=== PATIENT | male | born 1960 | race Caucasian/White ===

== ENCOUNTER 2016-10-12 08:43 | Day surgery (SDC) | payer OTHER ==
[~2016-10-12] VITALS: Ht 172.7 cm; Wt 64.3 kg
[2016-10-12] VITALS (8 sets, daily range): BP systolic 152–215; BP diastolic 76–99; PULSE 70–74; RESP 11–18; Ht 172.7 cm; Wt 64.3 kg
[~2016-10-12 08:43] MED LIST: BLOOD PRESSURE MEDS; INSULIN; NAPR-688 PO; OMEP20CA16 PO
[2016-10-12] MEDS ORDERED: MIDAZOLAM 1 MG/ML 2 ML INJ ONE (08:58)
[2016-10-12] MEDS ORDERED: PROPOFOL 0 ML ONE (08:58)
[2016-10-12] MEDS ORDERED: CEFAZOLIN 1 GM INJ ONE (08:58)
[2016-10-12] MEDS ORDERED: LIDOCAINE 1% (MDV) 20 ML INJ ONE (08:58)
[2016-10-12] MEDS ORDERED: HYDROmorphONE (0.2 MG/ML) 10ML SYG IV PRN (09:00)
[2016-10-12] MEDS ORDERED: LABETALOL HCL 20MG INJ IV PRN (09:00)
[2016-10-12] MEDS ORDERED: PROCHLORPERAZINE 10 MG INJ IV PRN (09:00)
[2016-10-12] MEDS ORDERED: INSULIN ASPART [NOVOLOG] 3 ML PEN SC ONE (09:00)
[2016-10-12] MEDS ORDERED: FENTAnyl 50 MCG/ML VIAL IV PRN (09:00)
[2016-10-12] MEDS ORDERED: OXYCODONE/ACETAMINOPHEN (5/325) TAB PO PRN ×2 (09:00)
[2016-10-12] MEDS ORDERED: hydrALAzine 20 MG INJ IV PRN (09:00)
[2016-10-12] MEDS ORDERED: MEPERIDINE 25 MG INJ IV PRN (09:00)
[2016-10-12] MEDS ORDERED: ONDANSETRON 4 MG INJ IV PRN (09:00)
[2016-10-12] MEDS ORDERED: DIPHENHYDRAMINE 50 MG INJ IV PRN (09:00)
[2016-10-12] MEDS ORDERED: EPHEDrine SULFATE 50 MG/5 ML SYG IV PRN (09:00)
[2016-10-12] MEDS ORDERED: PROPOFOL 100 ML ONE (09:01)
[2016-10-12] MEDS ORDERED: ROPIVACAINE 0.5 % 30 ML VIAL ONE (09:04)
[2016-10-12] MEDS ORDERED: AMLO-147 PO (09:21)
[2016-10-12] MEDS ORDERED: NOVO3I SC (09:21)
[2016-10-12] MEDS ORDERED: ATOR40TA68 PO (09:22)
[2016-10-12] MEDS ORDERED: CALC667C PO (09:23)
[2016-10-12] MEDS ORDERED: CARV25TA79 PO (09:23)
[2016-10-12 09:37] LABS: ADD SCAN DIFF NO
--- NOTE | 2016-10-12 09:44 | HPN ---
Date/Time of Note Date/Time of Note DATE: 10/12/16 TIME: 09:43 Interval H&P Admission Note Pt. seen H&P reviewed: No system changes ELSIE COHEN MD October 12, 2016 09:43
[2016-10-12 09:48] LABS: BASOPHILS % 0.3 % (0.0-2.0); EOSINOPHILS # 0.4 10^3/ul (0.0-0.5); EOSINOPHILS % 4.7 % (0.0-7.0); HEMATOCRIT 29.8 % (42.0-52.0); HEMOGLOBIN 9.9 g/dl (14.0-18.0); LYMPHOCYTES % 11.1 % (15.0-51.0); MEAN CORPUSCULAR HEMOGLOBIN 29.7 pg (29.0-33.0); MEAN CORPUSCULAR HGB CONC 33.2 g/dl (32.0-37.0); MEAN CORPUSCULAR VOLUME 89.5 fl (82.0-101.0); MEAN PLATELET VOLUME 11.8 fl (7.4-10.4); MONOCYTE # 0.8 10^3/ul (0.3-0.9); MONOCYTES % 8.8 % (0.0-11.0); NEUTROPHILS % 74.8 % (39.0-77.0); PLATELET COUNT 203 10^3/UL (140-415); RED BLOOD COUNT 3.33 10^6/ul (4.70-6.10); RED CELL DISTRIBUTION WIDTH 14.5 % (11.5-14.5); WHITE BLOOD COUNT 9.3 10^3/ul (4.8-10.8)
[2016-10-12] MEDS ORDERED: GELATIN SIZE 100 SPONGE ONE (09:50)
[2016-10-12] MEDS ORDERED: THROMBIN 5000 UNIT VIAL ONE (09:50)
[2016-10-12] MEDS ORDERED: HEPARIN 1000 UNITS/ML 10 ML INJ ONE (09:50)
[2016-10-12] MEDS ORDERED: LIDOCAINE 1% (MPF) 30 ML INJ ONE (09:50)
--- NOTE | 2016-10-12 09:55 | RADRPT ---
PROCEDURE: XR Chest. CLINICAL INDICATION: AV FISTULA CREATION , preoperative examination TECHNIQUE: Single frontal view of the chest was obtained. COMPARISON: None available FINDINGS: The cardiomediastinal silhouette is borderline prominent. Vasculature is prominent and slightly ind istinct. There is a right internal jugular catheter extending slightly past the cavoatrial junction region.. . No signs of pleural fluid or pneumothorax are seen. The osseous structures and soft tissues are unre markable. IMPRESSION: 1. Borderline cardiomegaly. Minimal pulmonary edema. 2. Right internal jugular catheter extending slightly past the cavoatrial junction region. RPTAT: DD .Gilberto Duncan MD, MD Date Time Electronically viewed and signed by .Gilberto Duncan MD, on 10/12/2016 09:55 .T/
[2016-10-12 09:56] LABS: ALBUMIN 3.5 g/dl (3.3-4.9)
[2016-10-12 09:59] LABS: BILIRUBIN,INDIRECT 0.2 mg/dl (0-1.1); BILIRUBIN,TOTAL 0.2 mg/dl (0.2-1.3)
[2016-10-12 10:00] LABS: ALBUMIN/GLOBULIN RATIO 0.89; TOTAL PROTEIN 7.4 g/dl (6.1-8.1)
[2016-10-12] MEDS ORDERED: HEPARIN 1000 UNITS/ML 10 ML INJ IRR ONE (10:00)
[2016-10-12] MEDS ORDERED: LIDOCAINE 1% (MPF) 30 ML INJ INJ ONE (10:00)
[2016-10-12 10:01] LABS: INR 1.05; PROTIME 13.7 Sec (12.2-14.2); PT RATIO 1.1
[2016-10-12 10:02] LABS: PARTIAL THROMBOPLASTIN TIME 27.3 Sec (25.0-35.0)
[2016-10-12 10:17] LABS: CALCIUM 8.4 mg/dl (8.4-10.2); CREATININE 3.7 mg/dl (0.61-1.24)
[2016-10-12 10:19] LABS: POTASSIUM 5.3 mmol/L (3.5-5.1)
[2016-10-12] MEDS ORDERED: METOCLOPRAMIDE 10 MG INJ ONE (10:37)
[2016-10-12] MEDS ORDERED: ONDANSETRON 4 MG INJ ONE (10:37)
[2016-10-12] MEDS ORDERED: FENTAnyl 50 MCG/ML VIAL ONE (10:46)
[2016-10-12] MEDS ORDERED: METOPROLOL 5 MG INJ ONE (10:48)
[2016-10-12] MEDS ORDERED: hydrALAzine 20 MG INJ ONE (10:48)
[2016-10-12] MEDS ORDERED: LABETALOL HCL 20MG INJ ONE ×3 (10:48→11:18)
--- NOTE | 2016-10-12 11:31 | RADRPT ---
Vent Rate: 77 bpm RR Interval: 0 msec NM Interval: 172 msec QRS Duration: 84 msec QT Interval: 382 msec QTC Interval: 432 msec P-R-T Lando: 56 - 74 - 87 degrees Normal sinus rhythm Nonspecific ST and T wave abnormality Abnormal ECG Electronically Signed By: Lew Mann [id number]
--- NOTE | 2016-10-12 12:14 | OPR ---
DATE OF OPERATION: 10/12/2016 PREOPERATIVE DIAGNOSIS: End-stage renal disease. POSTOPERATIVE DIAGNOSIS: End-stage renal disease. PROCEDURE PERFORMED: Creation of left arm AV fistula. SURGEON: Elsie Lr MD ANESTHESIA: Supraclavicular block anesthesia. ESTIMATED BLOOD LOSS: Minimal. COMPLICATIONS: No intraprocedural complications. INDICATIONS: This is a 56-year-old gentleman with end-stage renal disease on dialysis via a right I J PermCath. He needs long-term AV access for continued dialysis. A vein map of the left arm, he acevedo s a very good cephalic vein from the wrist all the way up to the shoulder, so we made a snuffbox AV fistula. DESCRIPTION OF PROCEDURE: The patient was brought to the operating room and placed on the table in supine position. Left arm was prepped and draped in the usual sterile fashion. I used ultrasound t o identify the left cephalic vein and traced it all the way up to the shoulder. It was a good calib er vein along its entire length. It was actually a nice sized vein that goes right down over the an atomic snuffbox. There is a good radial artery branch, a snuffbox branch to the radial artery with an anatomic snuffbox, so that is what I used. block was in place. Then, I prepped and draped the left arm in the usual sterile fashion. I began by making an incision made over the anatomic snuffbox of the left hand. I carefully dissected out the cephalic vein branch right through the anatomic snuff box. I then ligated it distally and divided it. I flushed it and it was a good caliber vein, it was a good 3 mm. I then dissected out the snuffbox branch of the radial artery just below the vein. It was a good artery, nice pulse, go od caliber, it was 2 to 3 mm. I clamped it proximally and distally, made an 8 mm long anterior sea riotomy, spatulated the end of the vein and anastomosed the end of the vein to the side of the arter y using 6-0 Prolene suture in the usual sterile fashion. I then removed the clamps. There was a go od thrill, good hemostasis. The skin incision was closed using 3-0 Vicryl subcuticular suture and 4 -0 Monocryl subcuticular suture for the skin. Sterile dressing was applied. The patient was then t ransferred to the recovery room in stable condition. He tolerated the procedure well. Dictated By: ELSIE DELUCA/BALA Conf#: [id number] DID#: [id number]
== END 2016-10-12 13:45 | disposition home or self-care (01) ==
LOC: SDS 08:43
PROVIDERS: ATTEND Surgery Vascular Surgery
DX: I12.0 Hypertensive chronic kidney disease with stage 5 chronic kidney disease or end stage renal disease (principal); N18.6 End stage renal disease; E11.9 Type 2 diabetes mellitus without complications
CPT/HCPCS: 36821; 71010; 80053; 82962; 85025; 85610; 85730; 93005; C1725; J0360; J0690; J1644; J2250; J2405; J2765; J2795; J3010; J1815

== ENCOUNTER 2017-02-15 09:56 | Day surgery (SDC) | payer OTHER ==
[~2017-02-15] VITALS: Ht 172.7 cm; Wt 63.9 kg
[~2017-02-15 09:56] MED LIST changes: +AMLO-147 PO; +ATOR40TA68 PO; -BLOOD PRESSURE MEDS; +CALC667C PO; +CARV25TA79 PO; -INSULIN; -NAPR-688 PO; +NOVO3I SC; -OMEP20CA16 PO
[2017-02-15] MEDS ORDERED: NOV SC* (10:30)
[2017-02-15 10:54] VITALS: Ht 172.7 cm; Wt 63.9 kg
[2017-02-15 10:58] VITALS: BP 214/90; PULSE 77; RESP 16
[2017-02-15 11:47] LABS: BASOPHILS % 0.5 % (0.0-2.0); EOSINOPHILS # 0.5 10^3/ul (0.0-0.5); EOSINOPHILS % 6.1 % (0.0-7.0); HEMATOCRIT 34.1 % (42.0-52.0); HEMOGLOBIN 11.2 g/dl (14.0-18.0); INR 0.99; MEAN CORPUSCULAR HEMOGLOBIN 29.9 pg (29.0-33.0); MEAN CORPUSCULAR HGB CONC 32.8 g/dl (32.0-37.0); MEAN CORPUSCULAR VOLUME 91.2 fl (82.0-101.0); MEAN PLATELET VOLUME 12.5 fl (7.4-10.4); MONOCYTE # 0.5 10^3/ul (0.3-0.9); MONOCYTES % 6.8 % (0.0-11.0); NEUTROPHIL # 5.8 10^3/ul (1.6-7.5); NEUTROPHILS % 73.2 % (39.0-77.0); PLATELET COUNT 140 10^3/UL (140-415); PROTIME 13.1 Sec (12.2-14.2); RED BLOOD COUNT 3.74 10^6/ul (4.70-6.10); RED CELL DISTRIBUTION WIDTH 12.3 % (11.5-14.5); WHITE BLOOD COUNT 7.9 10^3/ul (4.8-10.8)
[2017-02-15 11:48] LABS: PARTIAL THROMBOPLASTIN TIME 28.4 Sec (25.0-35.0)
[2017-02-15 11:56] LABS: ALBUMIN 4.4 g/dl (3.3-4.9); ALBUMIN/GLOBULIN RATIO 1.18; BILIRUBIN,INDIRECT 0.1 mg/dl (0-1.1); BILIRUBIN,TOTAL 0.1 mg/dl (0.2-1.3); TOTAL PROTEIN 8.1 g/dl (6.1-8.1)
[2017-02-15 11:57] LABS: CREATININE 5.06 mg/dl (0.61-1.24); POTASSIUM 4.9 mmol/L (3.5-5.1)
[2017-02-15] MEDS ORDERED: GLUCOSE GEL 15 GRAM TUBE PO PRN ×2 (12:00)
[2017-02-15] MEDS ORDERED: GLUCOSE GEL 15 GRAM TUBE BUCCAL PRN (12:00)
[2017-02-15] MEDS ORDERED: INSULIN ASPART [NOVOLOG] 3 ML PEN SC SCH (12:00)
[2017-02-15] MEDS ORDERED: DEXTROSE 50% 50 ML SYRINGE IV PRN ×2 (12:00)
[2017-02-15] MEDS ORDERED: GLUCAGON 1 MG INJ IM PRN (12:00)
[2017-02-15 14:15] VITALS: BP 202/89; PULSE 78; RESP 18
[2017-02-16] MEDS ORDERED: ACCUCHECK AT 2AM (Patients on SS coverage) XX SCH (02:00)
== END 2017-02-15 14:15 | disposition home or self-care (01) ==
LOC: SDS 09:56
PROVIDERS: ATTEND Surgery Vascular Surgery
DX: I12.0 Hypertensive chronic kidney disease with stage 5 chronic kidney disease or end stage renal disease (principal); E11.22 Type 2 diabetes mellitus with diabetic chronic kidney disease; N18.6 End stage renal disease; Z53.8 Procedure and treatment not carried out for other reasons
CPT/HCPCS: 80053; 82962; 85025; 85610; 85730; J1815

== ENCOUNTER 2017-03-18 09:22 | Day surgery (SDC) | payer OTHER ==
[~2017-03-18 09:22] MED LIST changes: +NOV SC*; -NOVO3I SC
[2017-03-18] MEDS ORDERED: GLUCOSE GEL 24 GRAMS PO ONE ×2 (11:30)
[2017-03-18] MEDS ORDERED: GLUCOSE GEL 24 GRAMS PO SCH (11:30)
[2017-03-18] MEDS ORDERED: LANT3I SC (12:02)
[2017-03-18] MEDS ORDERED: HYDR100T25 PO (12:03)
[2017-03-18] MEDS ORDERED: IRBE150T21 PO (12:04)
[2017-03-18] MEDS ORDERED: OMEP20CA16 PO (12:05)
== END 2017-03-18 12:00 | disposition home or self-care (01) ==
LOC: SDS 09:22
PROVIDERS: ATTEND Surgery Vascular Surgery
DX: Z53.9 Procedure and treatment not carried out, unspecified reason (principal)
CPT/HCPCS: 82962; 84132

== ENCOUNTER 2017-04-05 12:02 | Day surgery (SDC) | payer OTHER ==
[~2017-04-05] VITALS: Ht 172.7 cm; Wt 64.0 kg
[~2017-04-05 12:02] MED LIST changes: +HYDR100T25 PO; +IRBE150T21 PO; +LANT3I SC; +OMEP20CA16 PO
[2017-04-05 13:00] VITALS: Ht 172.7 cm; Wt 64.0 kg
[2017-04-05 13:01] VITALS: BP 194/86; PULSE 67; RESP 22
[2017-04-05] MEDS ORDERED: HEPARIN 1000 UNITS/NS (A-LINE) 1,000 ML ONE (13:10)
[2017-04-05] MEDS ORDERED: IODIXANOL LOCM 100 ML BTL ONE (13:10)
[2017-04-05] MEDS ORDERED: LIDOCAINE 1% (MDV) 20 ML INJ ONE (13:10)
[2017-04-05 15:00] VITALS: BP 177/84; PULSE 68; RESP 16
--- NOTE | 2017-04-05 15:46 | SIPON ---
Date/Time of Note Date/Time of Note DATE: 04/05/17 TIME: 15:45 Operative Report Preoperative Diagnosis ESRD Postoperative Diagnosis same Operation/Procedure Performed L arm AV fistulagram Surgeon see signature line occupational therapist assistants none Anesthesia: other Estimated blood loss: none Transfusion Required none Specimen none Grafts/Implants none Complications none ELSIE COHEN MD Apr 05, 2017 15:46
--- NOTE | 2017-04-05 16:29 | OPR ---
DATE OF OPERATION: 04/05/2017 PREOPERATIVE DIAGNOSIS: Poor flow in left arm arteriovenous fistula. POSTOPERATIVE DIAGNOSIS: Poor flow in left arm arteriovenous fistula. PROCEDURE PERFORMED: Left arm arteriovenous fistulogram. SURGEON: Elsie Lr MD ANESTHESIA: Local anesthesia. ESTIMATED BLOOD LOSS: Minimal. COMPLICATIONS: No intraprocedural complications. INDICATIONS: This is a 56-year-old diabetic hypertensive gentleman with end-stage renal disease. Jaswinder mena has a left brachiocephalic AV fistula. It has actually been functioning for about the last 2 priscila hs but the dialysis center reports just low flow in the fistula. I brought him in today for a fistu logram and possible intervention. DESCRIPTION OF PROCEDURE: The patient was brought to the lab tester and placed on the table in supin e position. Left arm was prepped and draped in the usual sterile fashion. I began by infiltrating over the fistula right at the wrist level. It is a snuffbox fistula so that the snuffbox branch of the radial artery is the inflow. I infiltrated over the cephalic vein right at the wrist and advanc ed a micropuncture needle into the vein, and then an 0.018 wire through the needle into the vein, an d then a micropuncture sheath was advanced over the wire into the vein. It is a 4-Armenian micropunct ure sheath. Then did a fistulogram with appropriate compression maneuvers. Essentially what I foun d was the entire cephalic vein is very good caliber and patent. There is no stenosis. It goes all the way up to the cephalic arch and into the central veins with no stenosis. The upper arm brachial and basilic veins were also identified and they are completely patent with no significant disease. The central veins were all patent with no significant central stenosis. He has a right IJ Perm-A-C ath that is still in place. The inflow was from this snuffbox branch of the radial artery, the anas tomosis is widely patent, the artery is a little small, essentially because it is a snuffbox branch. It is not stenotic and there is nothing to angioplasty. I was happy with the results of the proce dure. There was no intervention warranted. We removed the catheter and held manual compression on the puncture site until there was good hemostasis and then he was discharged home. He tolerated the procedure well without any complications. Dictated By: ELSIE DELUCA/BALA Conf#: [id number] [facility]#: [id number] CC: YAHIR BROOKS MD;*[facility]*
== END 2017-04-05 15:31 | disposition home or self-care (01) ==
LOC: SDS 12:02
PROVIDERS: ATTEND Surgery Vascular Surgery
DX: I12.0 Hypertensive chronic kidney disease with stage 5 chronic kidney disease or end stage renal disease (principal); N18.6 End stage renal disease; E11.22 Type 2 diabetes mellitus with diabetic chronic kidney disease; Z99.2 Dependence on renal dialysis
CPT/HCPCS: 36901; 82962; J1644; Q9967